=== PATIENT | female | born 1975 | race Caucasian/White ===

== ENCOUNTER 2021-02-06 14:35 | Emergency (ER) | payer OTHER ==
[~2021-02-06] VITALS: Ht 172.7 cm; Wt 71.2 kg
[2021-02-06] MEDS ORDERED: SYNTHROID75 MCG PO (14:47)
[2021-02-06] MEDS ORDERED: CRESTOR10 MG PO (14:48)
[2021-02-06] MEDS ORDERED: ZOLOFT50 MG PO (14:48)
== END 2021-02-06 18:49 | disposition home or self-care (01) ==
LOC: ER 14:35
DX: S01.91XA Laceration without foreign body of unspecified part of head, initial encounter (principal); V49.9XXA Car occupant (driver) (passenger) injured in unspecified traffic accident, initial encounter

== ENCOUNTER 2023-04-28 15:27 | Emergency (ER) | payer OTHER ==
[~2023-04-28] VITALS: Ht 172.7 cm; Wt 68.0 kg
[~2023-04-28 15:27] MED LIST: CRESTOR10 MG PO; SYNTHROID75 MCG PO; ZOLOFT50 MG PO
[2023-04-28 18:50] LABS: HEMATOCRIT 37.2 % (36.0-45.00); HEMOGLOBIN 12.5 g/dL (12.0-15.00); MEAN CELL VOLUME 87.7 fL (80.00-100.00); MEAN CORPUSCULAR HEMOGLOBIN 29.5 pg (27.00-32.0); MEAN CORPUSCULAR HGB CONC 33.6 g/dl (32.0-36.0); PLATELET COUNT 172 K/uL (150-450); RED BLOOD COUNT 4.24 M/uL (4.00-6.00); RED CELL DISTRIBUTION WIDTH 14.1 % (11.5-14.5)
[2023-04-28 20:19] LABS: ALBUMIN 4.1 gm/dL (3.4-5.0); BILIRUBIN TOTAL 0.72 mg/dL (0.3-1.2); CALCIUM 9.3 mg/dL (8.5-10.1); CREATININE SERUM 0.8 mg/dL (0.55-1.02); GFR 76.24; POTASSIUM 3.74 mEq/L (3.5-5.1); TOTAL PROTEIN 8.1 gm/dL (6.4-8.2)
== END 2023-04-28 21:42 | disposition home or self-care (01) ==
LOC: ER 15:28
PROVIDERS: Emergency Medicine
DX: U07.1 COVID-19 (principal); R50.9 Fever, unspecified; E03.9 Hypothyroidism, unspecified

== ENCOUNTER 2024-12-05 14:05 | Outpatient (CLI) | payer OTHER | END 2024-12-05 14:07 | disposition home or self-care (01) | LOC: MAMO-SONO 14:05 | PROVIDERS: ATTEND Surgery | DX: N60.11 Diffuse cystic mastopathy of right breast (principal); N60.12 Diffuse cystic mastopathy of left breast ==

== ENCOUNTER 2025-03-06 13:32 | Outpatient (CLI) | payer OTHER | END 2025-03-06 13:48 | disposition home or self-care (01) | LOC: RAD 13:32 | DX: M79.671 Pain in right foot (principal); M25.532 Pain in left wrist ==